=== PATIENT | male | born 1935 | race Caucasian/White ===

== ENCOUNTER → 2017-02-05 | Outpatient (CLI) | payer OTHER ==
[~2017-02-05] MED LIST: ADVIN10/60 INH; ALBU1AER9 INH; BRL90 PO; CYM/60 PO; DUTACAP PO; ESCI10TA17; FELO1TAB7 PO; FLUD0.1T PO; GLC/500 PO; HYDR10TA52 PO; ISR/30 PO; METO25TA56 PO; PANT40TA PO; TIOTCAP INH
== END | disposition home or self-care (01) ==
LOC: C.RDSM 13:52
PROVIDERS: ATTEND Physical Medicine & Rehabilitation Sports Medicine
DX: Z89.232 Acquired absence of left shoulder (principal)